=== PATIENT | female | born 1990 | race Caucasian/White ===

== ENCOUNTER → 2020-07-30 | Outpatient (CLI) | payer OTHER ==
[~2020-07-30] MED LIST: IBUPROFEN600 MG PO; IBUPROFEN800 MG PO; KEFLEX CAP 500500 MG PO; LISINOPRIL5 MG PO; MACROBID 100 M100 MG PO; NORCO 5-325 TA1 EACH PO; ORILISSA200 MG PO; PYRIDIUM200 MG PO
== END ==
LOC: LAB 06:24
DX: Z32.00 Encounter for pregnancy test, result unknown (principal)
CPT/HCPCS: 36415; 84702

== ENCOUNTER → 2020-08-04 | Outpatient (CLI) | payer OTHER | LOC: ER1 10:00 → EROP 10:00 → EDSTATUS 10:15 | DX: O03.9 Complete or unspecified spontaneous abortion without complication (principal) | CPT/HCPCS: 84702 ==

== ENCOUNTER 2020-08-09 13:07 | Emergency (ER) | payer OTHER ==
[~2020-08-09 13:07] MED LIST changes: -IBUPROFEN800 MG PO; -MACROBID 100 M100 MG PO
[2020-08-09 15:01] LABS: HEMOGLOBIN 12.9 gm/dl (12.3-15.3)
== END 2020-08-09 15:58 | disposition home or self-care (01) ==
LOC: ER1 13:07
PROVIDERS: Physician Assistant
DX: O03.9 Complete or unspecified spontaneous abortion without complication (principal); I10 Essential (primary) hypertension; U07.1 COVID-19
CPT/HCPCS: 84702; 85014; 85018; 86900; 86901; 99284

== ENCOUNTER 2020-10-24 08:35 | Emergency (ER) | payer OTHER ==
[2020-10-24 09:22] LABS: HEMOGLOBIN 13.5 gm/dl (12.3-15.3); RED BLOOD COUNT 4.77 M/UL (4.00-5.10); WHITE BLOOD COUNT 7.9 K/UL (4.5-11.0)
[2020-10-24 09:46] LABS: BUN/CREATININE RATIO 13 (0-10)
[2020-10-24] MEDS ORDERED: MACROBID 100 M100 MG PO (12:46)
[2020-10-24] MEDS ORDERED: IBUPROFEN800 MG PO (12:46)
== END 2020-10-24 13:30 | disposition home or self-care (01) ==
LOC: ER1 08:35
PROVIDERS: Emergency Medicine
DX: N39.0 Urinary tract infection, site not specified (principal)
CPT/HCPCS: 80053; 81001; 84703; 85025; 96374; 96375; 99284; J0696; J1885; J7030

== ENCOUNTER → 2021-02-24 | Day surgery (SDC) | payer OTHER ==
[~2021-02-24] MED LIST changes: +HYDROCODON-ACE1 EAC4 PO; +IBU600 MG PO; +IBUPROFEN800 MG PO; +MACROBID 100 M100 MG PO; +PRENATAL VITAM1 EAC3 PO
[2021-02-24 06:22] LABS: HEMOGLOBIN 13.3 gm/dl (12.3-15.3); RED BLOOD COUNT 4.7 M/UL (4.00-5.10); WHITE BLOOD COUNT 7.7 K/UL (4.5-11.0)
== END | disposition home or self-care (01) ==
LOC: OR 05:42
PROVIDERS: Obstetrics & Gynecology
DX: N80.3 Endometriosis of pelvic peritoneum (principal); N73.6 Female pelvic peritoneal adhesions (postinfective); I10 Essential (primary) hypertension; N94.10 Unspecified dyspareunia; Z87.42 Personal history of other diseases of the female genital tract
CPT/HCPCS: 36415; 81001; 84702; 85025; J1100; J1170; J1885; J2250; J2405; J2704; J2710; J2795; J3010; J7120; Q9968

== ENCOUNTER → 2021-03-28 | Outpatient (CLI) | payer OTHER | LOC: LAB 08:58 | DX: N92.6 Irregular menstruation, unspecified (principal) | CPT/HCPCS: 36415; 84144 ==

== ENCOUNTER 2021-10-19 15:21 | Emergency (ER) | payer BC ==
[2021-10-19 16:07] LABS: RED BLOOD COUNT 4.9 M/UL (4.00-5.10); WHITE BLOOD COUNT 7.1 K/UL (4.5-11.0)
[2021-10-19 16:35] LABS: BUN/CREATININE RATIO 16 (0-10)
[2021-10-19] MEDS ORDERED: HYDROCODON-ACE1 EAC4 PO (19:13)
[2021-10-19] MEDS ORDERED: ZOFRAN 4 MG TAB4 MG PO (19:16)
== END 2021-10-19 19:30 | disposition home or self-care (01) ==
LOC: ER1 15:21
PROVIDERS: Preventive Medicine Occupational Medicine
DX: N83.202 Unspecified ovarian cyst, left side (principal)
CPT/HCPCS: 76830; 80053; 81001; 83690; 84703; 85025; 85652; 86140; 87086; 96374; 96375; 96376; 99284; J1170; J1885; J2405; Q9967

== ENCOUNTER → 2021-10-27 | Day surgery (SDC) | payer BC ==
[~2021-10-27] VITALS: Ht 170.2 cm; Wt 72.1 kg
[~2021-10-27] MED LIST changes: +COLACE 100MG C100 MG PO; +PERCOCET 10-321 EACH PO; +ZOFRAN 4 MG TAB4 MG PO
[2021-10-27 07:07] LABS: RED BLOOD COUNT 4.72 M/UL (4.00-5.10); WHITE BLOOD COUNT 7.3 K/UL (4.5-11.0)
== END | disposition home or self-care (01) ==
LOC: OR 06:28
PROVIDERS: Obstetrics & Gynecology
DX: N83.12 Corpus luteum cyst of left ovary (principal); N73.6 Female pelvic peritoneal adhesions (postinfective); I10 Essential (primary) hypertension; N92.6 Irregular menstruation, unspecified; N80.3 Endometriosis of pelvic peritoneum; R10.2 Pelvic and perineal pain; Z91.013 Allergy to seafood
CPT/HCPCS: 81001; 84702; 85025; J0690; J1100; J1170; J1885; J2001; J2250; J2405; J2704; J2710; J2795; J3010